=== PATIENT | female | born 1975 | race Caucasian/White ===

== ENCOUNTER 2018-04-15 00:18 | Emergency (ER) | payer SELFPAY | END 2018-04-15 00:48 | disposition left against medical advice (07) | LOC: ED 00:18 | DX: R06.2 Wheezing (principal); M79.1 Myalgia; Z53.21 Procedure and treatment not carried out due to patient leaving prior to being seen by health care provider ==

== ENCOUNTER 2019-02-26 02:13 | Emergency (ER) | payer OTHER ==
[2019-02-26] MEDS ORDERED: DUONEB *Not for PRN Use IH ONE ×3 (02:20→02:34)
[2019-02-26 02:33] VITALS: BP 158/98
[2019-02-26] MEDS ORDERED: DECADRON IV ONE (03:03)
[2019-02-26] MEDS ORDERED: IBUPROFEN PO ONE (03:03)
[2019-02-26] MEDS ORDERED: PROVENTIL IH ONE (03:04)
[2019-02-26] MEDS ORDERED: ATROVENT IH ONE (03:04)
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
--- NOTE | 2019-02-26 04:58 | XRay Report ---
PROCEDURE: XR CHEST ROUTINE 2V TECHNIQUE: PA and lateral chest radiographs were obtained. HISTORY: JORDYN COMPARISONS: None. FINDINGS: Frontal and lateral views the chest were acquired. The heart is normal in size. The lungs a ppear clear. The pleura and mediastinum are within normal limits IMPRESSION: No active disease in the chest This document is electronically signed by Thaddeus Partida MD., February 26 2019 04:56:05 AM ET
== END 2019-02-26 05:41 | disposition home or self-care (01) ==
LOC: ED 02:13
DX: J45.901 Unspecified asthma with (acute) exacerbation (principal); F17.200 Nicotine dependence, unspecified, uncomplicated; F12.10 Cannabis abuse, uncomplicated; F14.10 Cocaine abuse, uncomplicated; Z79.899 Other long term (current) drug therapy
CPT/HCPCS: 71046; 94644; 96374; 99284; J1100

== ENCOUNTER 2019-04-22 02:05 | Emergency (ER) | payer SELFPAY ==
[2019-04-22] MEDS ORDERED: DUONEB *Not for PRN Use IH ONE ×2 (02:13→02:27)
[2019-04-22 02:26] VITALS: BP 149/100
[2019-04-22] MEDS ORDERED: DECADRON IM ONE (02:59)
[2019-04-22] MEDS ORDERED: PROVENTIL IH ONE (03:12)
[2019-04-22] MEDS ORDERED: ATROVENT IH ONE (03:12)
--- NOTE | 2019-04-22 03:25 | XRay Report ---
CHEST 2 VIEWS INDICATION / CLINICAL INFORMATION: Cough and wheezing. COMPARISON: 02/26/2019. FINDINGS: SUPPORT DEVICES: None. HEART / MEDIASTINUM: The heart size and pulmonary vasculature are normal. LUNGS / PLEURA: Mild diffuse chronic interstitial disease is stable. No new abnormality is seen. No p neumothorax. ADDITIONAL FINDINGS: No significant additional findings. IMPRESSION: Mild diffuse chronic interstitial lung disease is stable. No acute abnormality or other c hange since 02/26/2019. Signer Name: Russel Resendiz MD Signed: 04/22/2019 3:20 AM Workstation Name: [email or web address]
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
== END 2019-04-22 05:36 | disposition home or self-care (01) ==
LOC: ED 02:05
DX: J45.21 Mild intermittent asthma with (acute) exacerbation (principal); F17.200 Nicotine dependence, unspecified, uncomplicated; Z98.890 Other specified postprocedural states; Z79.899 Other long term (current) drug therapy
CPT/HCPCS: 71046; 94644; 96372; 99283; J1100

== ENCOUNTER 2019-09-24 00:37 | Emergency (ER) | payer SELFPAY ==
[2019-09-24 00:46] VITALS: BP 168/107
== END 2019-09-24 02:40 | disposition left against medical advice (07) ==
LOC: ED 00:37
DX: L02.32 Furuncle of buttock (principal); Z53.21 Procedure and treatment not carried out due to patient leaving prior to being seen by health care provider

== ENCOUNTER 2020-03-19 05:51 | Observation (INO) | payer SELFPAY ==
[2020-03-19] MEDS ORDERED: MAGNESIUM SULFATE 2 GM/50 ML BAG IV ONE (06:11)
[2020-03-19] MEDS ORDERED: ALBUTEROL 2.5 MG/3 ML NEBU IH ONE ×2 (06:11→11:02)
[2020-03-19] MEDS ORDERED: dexAMETHasone 20 MG/5 ML VIAL IV ONE (06:11)
[2020-03-19] MEDS ORDERED: IPRATROPIUM 0.02% NEBU 2.5 ML IH ONE ×2 (06:11→11:02)
--- NOTE | 2020-03-19 06:14 | Emergency Department Report ---
Chief Complaint: Dyspnea/Respdistress Stated Complaint: ASTHMA/CHEST PAIN - HPI History of Present Illness: 44-year-old known asthmatic presents to the emergency room for shortness of breath productive cough chest tightness x2 days. Patient reports that she is ran out of her nebulizer solutions. Patient denies any fever or chills. - Exam Vital Signs: Vital Signs 03/19/20 05:54 Temperature 98.5 F Pulse Rate 111 H Respiratory 16 Rate Blood Pressure 166/108 O2 Sat by Pulse 95 Oximetry Physical Exam: Gen: alert oriented NAD HEENT: Bilateral eyes are red nasal turbinates hypertrophic oromucosa is moist Cardic: regular rate and rhythm no murmurs appreciated Resp: Inspiratory and expiratory wheezing with rhonchorous Abdomen: Soft nontender nondistended normal bowel sounds. MSE screening note: Focused history and physical exam performed. Due to findings the following was ordered: 44-year-old known asthmatic presents to the emergency room for shortness of breath productive cough chest tightness x2 days. Patient reports that she is ran out of her nebulizer solutions. Patient denies any fever or chills. IV normal saline, dexamethasone 10 mg IV, magnesium 2 g IV normal saline 1 L, albuterol 5 mg inhalation and Atrovent 0.5 mg inhalation. Patient be evaluated by the next provider on duty. ED Disposition for MSE Condition: Stable Referrals: PRIMARY CARE, [Primary Care Provider] - 3-5 Days
[2020-03-19] MEDS ORDERED: SODIUM CHLORIDE 0.9% 1000 ML 1,000 ML IV ONE (06:24)
[2020-03-19] MEDS ORDERED: SODIUM CHLORIDE 0.9% 1000 ML 1,000 ML ONE (06:25)
[2020-03-19] MEDS ORDERED: BENZONATATE 100 MG CAP PO ONE (07:43)
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
--- NOTE | 2020-03-19 08:02 | XRay Report ---
CHEST 2 VIEWS INDICATION: cough, shortness of breath. COMPARISON: 04/22/2019. FINDINGS: Support devices: None. Heart: Within normal limits. Lungs/Pleura: No acute air space or interstitial disease. No significant pleural effusion. IMPRESSION: No acute findings. Signer Name: Frederick Zamora MD Signed: 03/19/2020 7:58 AM Workstation Name: [email or web address]
[2020-03-19 11:06] LABS: Hematocrit 42.7 % (30.3-42.9); Hemoglobin 14.2 gm/dl (10.1-14.3); Mean Corpuscular HGB Conc 33 % (30-34); Mean Corpuscular Volume 100 fl (79-97); Platelet Count 277 K/mm3 (140-440); Red Blood Count 4.27 M/mm3 (3.65-5.03); Red Cell Distribution Width 14.5 % (13.2-15.2)
[2020-03-19 11:14] LABS: Alanine Aminotransferase 12 units/L (7-56); Albumin 3.7 g/dL (3.9-5); BUN/Creatinine Ratio 12; Blood Urea Nitrogen 11 mg/dL (7-17); Calcium 8.6 mg/dL (8.4-10.2); Hemolysis Index 7
[2020-03-19 11:18] LABS: Bilirubin,Direct < 0.2 mg/dL (0-0.2)
[2020-03-19 12:59] LABS: ABG Base Excess -3.1 mmol/L (-2.0-3.0); ABG HCO3 21.1 mmol/L (20.0-26.0); ABG Methemoglobin 0.5 % (0.0-1.5); ABG Oxygen Saturation 92.4 % (95.0-99.0); ABG PCO2 35.5 mm Hg; ABG PH 7.393 pH Units (7.350-7.450); ABG PO2 61.8 mm Hg (80.0-90.0)
[2020-03-19] MEDS ORDERED: ZIPRASIDONE MESYLATE 20 MG VIAL IM ONE (14:27)
--- NOTE | 2020-03-19 15:20 | Cat Scan Report ---
CTA CHEST WITH CONTRAST INDICATION : shortness of breath, hypoxia, +dimer,. TECHNIQUE: Axial imaging performed through the chest, with contrast bolus timing set to maximize opa cification of the pulmonary arteries. Sagittal and coronal reformatted images. 3-plane MIP reformatte d images were obtained. All CT scans at this location are performed using CT dose reduction for ALAR A by means of automated exposure control. 100 mL of intravenous contrast administered. COMPARISON: FINDINGS: Bolus: Contrast bolus timing is adequate. PTE: No filling defect is present to suggest PTE. Mediastinum: Heart and great vessels appear normal. No pathologic mediastinal adenopathy. Lungs: Lungs are clear. Bones: Degenerative changes in the spine with nothing acute. Upper abdomen: Limited imaging of the upper abdomen shows nothing acute. IMPRESSION: Negative for PTE. Clear lungs. Signer Name: Robert Ordonez Jr, MD Signed: 03/19/2020 3:16 PM Workstation Name: [id number]
[2020-03-19] MEDS ORDERED: cefTRIAXone/NS 1 GM/50 ML 1 GM/50 ML BAG IV ONE (15:58)
[2020-03-19 19:43] LABS: Basophils % (Manual) 0 % (0.0-1.8); Eosinophils % (Manual) 0 % (0.0-4.3); Hypochromasia Few; Platelet Estimate Consistent w Auto; Total Cells Counted 100
--- NOTE | 2020-03-19 20:36 | Event Note ---
Date: 03/19/20 Patient reevaluated Improved with treatments Oxygen saturation 98% on room air Slight wheezing and rhonchi present. Patient discharged on Levaquin steroid Dosepak Singulair and albuterol inhaler. Patient to follow-up with PCP.
[2020-03-20 07:57] VITALS: BP 122/62
== END 2020-03-19 23:59 | disposition home or self-care (01) ==
LOC: ED 05:51 → 3A 16:02
PROVIDERS: ADMIT Internal Medicine; ATTEND Internal Medicine
DX: J45.41 Moderate persistent asthma with (acute) exacerbation (principal); R09.02 Hypoxemia; F17.200 Nicotine dependence, unspecified, uncomplicated; Z90.81 Acquired absence of spleen; Z79.899 Other long term (current) drug therapy
CPT/HCPCS: 36415; 71046; 71275; 80048; 80076; 82803; 83880; 85007; 85025; 85379; 93005; 94644; 96365; 96367; 96375; 99291; G0378; J0696; J1100; J3475; J3486; J7030; Q9967

== ENCOUNTER 2020-07-04 13:09 | Emergency (ER) | payer SELFPAY ==
[2020-07-04] MEDS ORDERED: methylPREDNISolone Sod Succinate 125 MG/2 ML INJ IM ONE (14:36)
[2020-07-04] MEDS ORDERED: ALBUTEROL 2.5 MG/3 ML NEBU IH ONE (14:37)
[2020-07-04] MEDS ORDERED: IPRATROPIUM 0.02% NEBU 2.5 ML IH ONE (14:37)
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
--- NOTE | 2020-07-04 15:00 | XRay Report ---
CHEST 2 VIEWS INDICATION / CLINICAL INFORMATION: SOB wheezing. COMPARISON: 03/19/2020 FINDINGS: SUPPORT DEVICES: None. HEART / MEDIASTINUM: No significant abnormality. LUNGS / PLEURA: No significant pulmonary or pleural abnormality. No pneumothorax. ADDITIONAL FINDINGS: No significant additional findings. IMPRESSION: 1. No acute findings. No significant interval change. Signer Name: oJe Hall MD Signed: 07/04/2020 2:55 PM Workstation Name: [id number]
[2020-07-04] MEDS ORDERED: SODIUM CHLORIDE 0.9% 500 ML 500 ML IV ONE (15:49)
[2020-07-04] MEDS ORDERED: MAGNESIUM SULFATE 1 GM in SODIUM CHLORIDE 0.9% 50 ML IV ONE (16:00)
[2020-07-04 16:31] LABS: Alanine Aminotransferase 12 units/L (7-56); Albumin 3.7 g/dL (3.9-5); BUN/Creatinine Ratio 13; Blood Urea Nitrogen 10 mg/dL (7-17); Calcium 8.9 mg/dL (8.4-10.2); Hemolysis Index 6
[2020-07-04 16:44] LABS: Hematocrit 42.2 % (30.3-42.9); Hemoglobin 14.4 gm/dl (10.1-14.3); Mean Corpuscular HGB Conc 34 % (30-34); Mean Corpuscular Volume 99 fl (79-97); Platelet Count 293 K/mm3 (140-440); Red Blood Count 4.28 M/mm3 (3.65-5.03); Red Cell Distribution Width 13.6 % (13.2-15.2)
[2020-07-04 17:12] VITALS: BP 171/95
[2020-07-04 18:11] LABS: Anisocytosis Few; Hypochromasia Few; Total Cells Counted 100
== END 2020-07-04 18:13 | disposition home or self-care (01) ==
LOC: ED 13:09
DX: J02.9 Acute pharyngitis, unspecified (principal); J45.901 Unspecified asthma with (acute) exacerbation; F17.200 Nicotine dependence, unspecified, uncomplicated; Z98.890 Other specified postprocedural states; Z79.899 Other long term (current) drug therapy
CPT/HCPCS: 36415; 71046; 80053; 83735; 84484; 85007; 85025; 94644; 96365; 96372; 99285; J2930; J3475; J7040

== ENCOUNTER 2020-07-27 03:38 | Emergency (ER) | payer SELFPAY | END 2020-07-27 07:00 | disposition left against medical advice (07) | LOC: ED 03:38 | DX: M79.604 Pain in right leg (principal); Z53.21 Procedure and treatment not carried out due to patient leaving prior to being seen by health care provider ==

== ENCOUNTER 2020-07-27 16:55 | Emergency (ER) | payer SELFPAY ==
[2020-07-27] MEDS ORDERED: DEXTROSE 50% IN WATER (25GM) 50 ML SYRINGE IV ONE (17:02)
[2020-07-27] MEDS ORDERED: KETOROLAC 30 MG/1 ML INJ IM ONE (17:36)
--- NOTE | 2020-07-27 17:37 | Event Note ---
ED Screening Note Date of service: 07/27/20 Time: 17:34 ED Screening Note: 45-year-old -Faroese female presents to the emergency room complaining of right hip and leg pain that started 4 days ago. Patient reports she last took ibuprofen around 1 PM. Patient denies any injuries. This initial assessment/diagnostic orders/clinical plan/treatment(s) is/are subject to change based on patients health status, clinical progression and re- assessment by fellow clinical providers in the ED. Further treatment and workup at subsequent clinical providers discretion. Patient/guardian urged not to elope from the ED as their condition may be serious if not clinically assessed and managed. Initial orders include:
--- NOTE | 2020-07-27 18:42 | XRay Report ---
RIGHT HIP 2 VIEW(S) INDICATION / CLINICAL INFORMATION: Right hip pain COMPARISON: None available. FINDINGS: BONES / JOINT(S): No acute fracture. No hip dislocation. Remote internally fixated left intertrochant fabrice femur fracture noted with near bridging heterotopic ossification. There are remote fractures of the left pubis and left sacrum with pseudoarticulation of the sacrum and L4 transverse process. Trans itional features are seen at the lumbosacral junction. SOFT TISSUES: No significant abnormality. ADDITIONAL FINDINGS: None. IMPRESSION: No acute process of the right hip. Other incidental findings as above Signer Name: Albino Moura MD Signed: 07/27/2020 6:37 PM Workstation Name: [id number]
[2020-07-27] MEDS ORDERED: KETOROLAC 30 MG/1 ML INJ ONE (19:55)
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
[2020-07-27 21:07] VITALS: BP 127/92
== END 2020-07-27 20:57 | disposition home or self-care (01) ==
LOC: ED 16:55
DX: M25.551 Pain in right hip (principal); J45.909 Unspecified asthma, uncomplicated; F17.200 Nicotine dependence, unspecified, uncomplicated; Z98.890 Other specified postprocedural states
CPT/HCPCS: 73502; 96372; 99283; J1885

== ENCOUNTER 2021-02-27 17:44 | Emergency (ER) | payer MEDICAID ==
[2021-02-27 18:05] VITALS: BP 143/86
[2021-02-27] MEDS ORDERED: MAGNESIUM SULFATE 2 GM/50 ML BAG IV ONE (18:26)
[2021-02-27] MEDS ORDERED: methylPREDNISolone Sod Succinate 125 MG/2 ML INJ IV ONE (18:26)
[2021-02-27] MEDS ORDERED: ALBUTEROL 2.5 MG/3 ML NEBU IH ONE (18:28)
[2021-02-27] MEDS ORDERED: IPRATROPIUM/ALBUTEROL SULFATE 3 ML AMPUL.NEB IH ONE (18:29)
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
--- NOTE | 2021-02-27 19:32 | XRay Report ---
CHEST 2 VIEWS INDICATION: Dyspnea. COMPARISON: 07/04/2020 FINDINGS: SUPPORT DEVICES: None. HEART: Within normal limits. LUNGS/PLEURA: Minimal patchy bibasilar airspace disease with otherwise clear lungs. No dense consolid ation or pleural effusion. No pneumothorax. ADDITIONAL FINDINGS: None. IMPRESSION: 1. Pulmonary findings as above. Signer Name: Wil Samayoa MD Signed: 02/27/2021 7:27 PM Workstation Name: [id number]
[2021-02-27 19:51] LABS: Hematocrit 42.1 % (30.3-42.9); Hemoglobin 14.4 gm/dl (10.1-14.3); Mean Corpuscular HGB Conc 34 % (30-34); Mean Corpuscular Volume 101 fl (79-97); Platelet Count 175 K/mm3 (140-440); Red Blood Count 4.17 M/mm3 (3.65-5.03); Red Cell Distribution Width 14.1 % (13.2-15.2)
[2021-02-27 19:55] LABS: Alanine Aminotransferase 24 units/L (7-56); Albumin 3.4 g/dL (3.9-5); BUN/Creatinine Ratio 11; Blood Urea Nitrogen 10 mg/dL (7-17); Calcium 7.9 mg/dL (8.4-10.2); Hemolysis Index 8
[2021-02-27 20:41] LABS: Total Cells Counted 100
[2021-02-27 20:42] LABS: Platelet Estimate Consistent w Auto; RBC Morphology Normal; Smudge Cells Few
== END 2021-02-27 20:15 | disposition home or self-care (01) ==
LOC: ED 17:44
DX: J45.901 Unspecified asthma with (acute) exacerbation (principal); F17.200 Nicotine dependence, unspecified, uncomplicated; Z72.89 Other problems related to lifestyle; Z98.890 Other specified postprocedural states; Z79.899 Other long term (current) drug therapy
CPT/HCPCS: 36415; 71046; 80053; 82805; 85007; 85025; 94640; 96365; 96375; 99284; J2930; J3475

== ENCOUNTER 2021-03-05 06:01 | Inpatient (IN) | payer MEDICAID ==
[2021-03-05] MEDS ORDERED: IPRATROPIUM/ALBUTEROL SULFATE 3 ML AMPUL.NEB IH ONE (06:42)
[2021-03-05] MEDS ORDERED: ACETAMINOPHEN 500 MG TAB PO ONE (07:49)
[2021-03-05] MEDS ORDERED: IPRATROPIUM 0.02% NEBU 2.5 ML IH ONE (07:49)
[2021-03-05] MEDS ORDERED: methylPREDNISolone Sod Succinate 125 MG/2 ML INJ IV ONE (07:49)
[2021-03-05] MEDS ORDERED: ALBUTEROL 2.5 MG/3 ML NEBU IH ONE (07:49)
[2021-03-05] MEDS ORDERED: LACTATED RINGERS 1,000 ML IV ONE (07:49)
[2021-03-05] MEDS ORDERED: MAGNESIUM SULFATE 2 GM/50 ML BAG IV ONE (07:52)
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
--- NOTE | 2021-03-05 08:24 | XRay Report ---
CHEST 1 VIEW INDICATION: dyspnea. COMPARISON: 03/29/2021 FINDINGS: Support devices: None. Heart: Within normal limits. Lungs/Pleura: No acute air space or interstitial disease. Additional findings: None. IMPRESSION: No acute findings. Signer Name: Robert Ordonez Jr, MD Signed: 03/05/2021 8:19 AM Workstation Name: [id number]
[2021-03-05 08:34] LABS: Hematocrit 42.1 % (30.3-42.9); Mean Corpuscular HGB Conc 33 % (30-34); Mean Corpuscular Volume 99 fl (79-97); Platelet Count 363 K/mm3 (140-440); Red Blood Count 4.25 M/mm3 (3.65-5.03); Red Cell Distribution Width 13.7 % (13.2-15.2)
[2021-03-05 08:46] LABS: INR 0.92 (0.87-1.13)
[2021-03-05 08:59] LABS: Alanine Aminotransferase 20 units/L (7-56); Albumin 3.4 g/dL (3.9-5); Blood Urea Nitrogen 10 mg/dL (7-17); Calcium 8.7 mg/dL (8.4-10.2); Hemolysis Index 13
[2021-03-05 09:00] LABS: BUN/Creatinine Ratio 14
[2021-03-05] MEDS ORDERED: POTASSIUM CHLORIDE ER 20 MEQ TAB PO ONE ×2 (09:26→13:30)
--- NOTE | 2021-03-05 11:49 | History and Physical Report ---
History of Present Illness Chief complaint: I cannot breathe History of present illness: 45 YO Female with Asthma, Bronchitis presents to ED for evaluation. Patient reports "I cannot breathe". Patient has decreased verbalization due to shortness of breath and uses head gestures to acknowledge symptoms. Patient knowledges that she has experienced shortness of breath over the past week with worsening symptoms over the same timeframe. Patient was treated with outpatient steroid therapy, antibiotic therapy, and bronchodilator therapy without relief of symptoms. Patient knowledges increased use of bronchodilator therapy without relief. Patient transported to [facility] via private vehicle for further care and evaluation of the aforementioned symptoms. The patient was seen and evaluated in the emergency department. All lab and image studies reviewed. Patient is unable to speak and to complete sentences. Patient is using accessory muscles to breathe. Patient is tripoding and sitting forward in bed. Patient appears anxious and is unable to speak in complete sentences due to shortness of breath. Patient underwent chest x-ray and found to have evidence of pneumonia. Patient also found to have a pulse oximetry of 86% on room air as well as a PO2 of 44% on her arterial blood gas. Patient found to have symptoms consistent with acute hypoxemic respiratory failure secondary to pneumonia, and complicated by asthmatic bronchitis. Patient also found to have systemic inflammatory response syndrome. Patient admitted to medical floor due to increased risk of worsening symptoms. Patient initiated on pneumonia protocol and treated with IV antibiotic therapy. No reports of fever, chills, chest pain, palpitation, skin rash, recent ill contacts, or known exposure to COVID-19. Prior admission on 10/20/2019 reviewed. All medication listed in the medical record at time of admission has been reconciled. Past History Past Medical History: other (See HPI) Past Surgical History: total hip replacement, bowel surgery, Other (Spleenectomy. ) Social history: single. denies: smoking, alcohol abuse, prescription drug abuse Family history: no significant family history, other (Reviewed) Medications and Allergies Allergies Allergy/AdvReac Type Severity Reaction Status Date / Time No Known Allergies Allergy Verified 03/05/21 09:02 Home Medications Medication Instructions Recorded Confirmed Last Taken Type Prednisone [predniSONE 10 mg 10 mg PO .TAPER #1 tab.ds.pk 03/19/20 Unknown Rx (6-Day Pack, 21 Tabs)] levoFLOXacin [Levaquin] 750 mg PO QDAY 5 Days #5 tablet 03/19/20 Unknown Rx Ketorolac [Toradol] 10 mg PO Q6H PRN #15 tablet 07/27/20 Unknown Rx methOCARBAMOL [Robaxin] 750 mg PO Q8H PRN #21 tablet 07/27/20 Unknown Rx ALBUTEROL NEB's [Proventil 0.083% 2.5 mg IH QID PRN #30 neb 02/27/21 Unknown Rx NEBS] Albuterol Mdi (or & Nicu Only) 2 puff IH Q4H PRN #8.5 gram 02/27/21 Unknown Rx [ProAir HFA Inhaler] Benzonatate [Tessalon Perles] 100 mg PO Q8HR #30 capsule 02/27/21 Unknown Rx Montelukast [Singulair] 10 mg PO QPM 15 Days #15 tablet 02/27/21 Unknown Rx predniSONE [Deltasone] 60 mg PO QDAY #12 tab 02/27/21 Unknown Rx Review of Systems Constitutional: no weight loss, no weight gain, no fever, no chills Ears, nose, mouth and throat: no ear pain, no tinnitis, no nose pain, no nasal congestion Breasts: no change in shape, no swelling, no mass Cardiovascular: no chest pain, no orthopnea Respiratory: shortness of breath Gastrointestinal: no abdominal pain, no vomiting, no diarrhea, no change in bowel habits Genitourinary Female: no pelvic pain, no flank pain, no dysuria, no urinary frequency, no urgency Rectal: no pain, no bleeding Musculoskeletal: no neck stiffness, no neck pain, no low back pain, no shooting leg pain Integumentary: no rash, no pruritis, no redness, no sores, no wounds Neurological: no head injury, no paralysis, no parathesias, no tingling, no syncope Psychiatric: no anxiety, no change in sleep habits, no insomnia, no change in appetite, no change in libido Endocrine: no cold intolerance, no polyphagia, no polydipsia, no nocturia, no flushing Hematologic/Lymphatic: no easy bruising, no easy bleeding Allergic/Immunologic: no allergic rhinitis, no wheezing Exam - Constitutional Vitals: Temp Pulse Resp BP Pulse Ox 98.1 F 86 23 154/94 90 03/05/21 07:47 03/05/21 08:45 03/05/21 08:45 03/05/21 08:45 03/05/21 08:45 General appearance: Present: mild distress - EENT Eyes: Present: PERRL ENT: hearing intact, clear oral mucosa - Neck Neck: Present: supple, normal ROM - Respiratory Respiratory effort: labored, pursed lips, accessory muscle use, stridor Respiratory: bilateral: diminished, wheezing - Cardiovascular Heart Sounds: Present: S1 & S2. Absent: rub, click - Extremities Extremities: pulses symmetrical, No edema Peripheral Pulses: within normal limits - Abdominal General gastrointestinal: Present: soft, non-tender, non-distended, normal bowel sounds Female genitourinary: Present: normal - Integumentary Integumentary: Present: clear, warm, dry - Musculoskeletal Musculoskeletal: gait normal, strength equal bilaterally - Psychiatric Psychiatric: agitated - Neurologic Neurologic: CNII-XII intact, moves all extremities HEART Score - HEART Score Troponin: Troponin T < 0.010 ng/mL (0.00-0.029) 03/05/21 07:54 Results - Labs CBC & Chem 7: 03/05/21 07:54 03/05/21 12:10 Labs: Abnormal lab results 03/05/21 03/05/21 Range/Units 07:54 07:54 WBC 14.6 H (4.5-11.0) K/mm3 MCV 99 H (79-97) fl MCH 33 H (28-32) pg Potassium 3.2 L (3.6-5.0) mmol/L Albumin 3.4 L (3.9-5) g/dL Assessment and Plan - Patient Problems (1) Acute hypoxemic respiratory failure Current Visit: Yes Status: Acute Plan to address problem: Supplemental oxygen, pulse oximetry, nebulizer therapy, chest x-ray, arterial blood gas, noninvasive positive pressure ventilation as clinically indicated. (2) Pneumonia Current Visit: Yes Status: Acute Plan to address problem: Pneumonia protocol: Chest x-ray, CBC, CMP, IV antibiotic therapy, supplemental oxygen, pulse oximetry, noninvasive positive pressure ventilation as clinically indicated. Blood culture. (3) Systemic inflammatory response syndrome Current Visit: Yes Status: Acute Plan to address problem: CBC, CMP, chest x-ray, urinalysis, IV antibiotic therapy, supportive care. (4) Asthma exacerbation Current Visit: Yes Status: Acute Qualifiers: Asthma severity: mild Asthma persistence: intermittent Qualified Code(s): J45.21 - Mild intermittent asthma with (acute) exacerbation Plan to address problem: Chest x-ray, nebulizer therapy, pulse oximetry, steroid therapy, supportive care. Patient counseled regarding avoidance of asthma triggers. (5) Suspected 2019 novel coronavirus infection Current Visit: Yes Status: Acute Plan to address problem: Coronavirus PCR ordered by ED staff. And is pending at time of admission. (6) DVT prophylaxis Current Visit: Yes Status: Acute Plan to address problem: SCDs bilateral lower extremities while in bed, patient is ambulatory
[2021-03-05 11:59] LABS: ABG Base Excess 0.6 mmol/L (-2.0-3.0); ABG HCO3 24.6 mmol/L (20.0-26.0); ABG Methemoglobin 0.6 % (0.0-1.5); ABG Oxygen Saturation 80.8 % (95.0-99.0); ABG PCO2 37.6 mm Hg; ABG PH 7.434 pH Units (7.350-7.450); ABG PO2 44.7 mm Hg (80.0-90.0)
[2021-03-05] MEDS ORDERED: ONDANSETRON 4 MG/2 ML INJ IV PRN (12:21)
[2021-03-05] MEDS ORDERED: KETOROLAC 10 MG TAB PO PRN (12:25)
[2021-03-05 12:33] LABS: Total Cells Counted 100
[2021-03-05 12:37] LABS: Platelet Estimate Consistent w Auto; RBC Morphology Normal; Toxic Granulation Few
[2021-03-05 12:49] LABS: C-Reactive Protein 3.1 mg/dL (0.00-1.30)
[2021-03-05] MEDS ORDERED: ALBUTEROL 2.5 MG/3 ML NEBU IH PRN (13:00)
[2021-03-05] MEDS ORDERED: ACETAMINOPHEN 325 MG TAB PO PRN (13:00)
[2021-03-05] MEDS: methylPREDNISolone Sod Succinate 40 MG/1 ML INJ IV SCH ×2 (18:25→21:22)
[2021-03-05] MEDS: MONTELUKAST 10 MG TAB PO SCH (18:26)
[2021-03-05] MEDS: BENZONATATE 100 MG CAP PO SCH ×2 (18:26→21:23)
[2021-03-06] MEDS: methylPREDNISolone Sod Succinate 40 MG/1 ML INJ IV SCH ×3 (05:51→21:18)
[2021-03-06] MEDS: BENZONATATE 100 MG CAP PO SCH ×3 (05:52→21:18)
[2021-03-06 06:15] LABS: Blood Urea Nitrogen 15 mg/dL (7-17); Calcium 8.5 mg/dL (8.4-10.2); Hemolysis Index 5
[2021-03-06 06:18] LABS: BUN/Creatinine Ratio 21
[2021-03-06 06:21] LABS: Basophils # (Auto) 0.1 K/mm3 (0.0-0.1); Basophils % (Auto) 0.3 % (0.0-1.8); Hematocrit 37.7 % (30.3-42.9); Lymphocytes # (Auto) 1.4 K/mm3 (1.2-5.4); Lymphocytes % (Auto) 7.8 % (13.4-35.0); Mean Corpuscular HGB Conc 34 % (30-34); Mean Corpuscular Volume 99 fl (79-97); Monocytes # (Auto) 1.1 K/mm3 (0.0-0.8); Monocytes % (Auto) 5.8 % (0.0-7.3); Platelet Count 374 K/mm3 (140-440); Red Blood Count 3.82 M/mm3 (3.65-5.03); Red Cell Distribution Width 14.1 % (13.2-15.2)
--- NOTE | 2021-03-06 07:52 | Progress Note ---
Assessment and Plan Assessment and plan: -- Acute hypoxemic respiratory failure/PO2 44.7 on ABG Current Visit: Yes Status: Acute ABG; PO2 44.7, O2 sats 80.8 L on room air Supplemental oxygen, titrate O2 sats to more than 90% Hypoxia due to acute exacerbation of bronchial asthma As well as acute bronchitis with pneumonitis Treat underlying cause --Acute exacerbation of bronchial asthma ; Current Visit: Yes Status: Acute Oxygen, nebulizers, tapering dose of steroids, inhalation steroids Empiric antibiotics, home O2 evaluation at discharge, BiPAP as needed --Acute bronchitis with pneumonitis Current Visit: Yes Status: Acute Empiric antibiotics, bronchodilators, blood cultures, oxygen titrate O2 sats more than 90%, BiPAP as needed -- Systemic inflammatory response syndrome[SIRS] Current Visit: Yes Status: Acute Tachycardia, tachypnea and leukocytosis With underlying acute bronchitis and pneumonitis Continue empiric antibiotics, bronchodilator and steroids, follow cultures --PUI /high suspicion COVID-19 Current Visit: Yes Status: Acute Coronavirus PCR ordered by ED staff. Isolation precautions and is pending at time of admission. --Mild to moderate malnutrition Current Visit: Yes Status: Acute Hypoalbuminemia, albumin 3.4 Nutrition supplements and supportive care --Ongoing tobacco use; Current Visit: Yes Status: Acute. Smoking cessation counseling done, risks and consequences of chronic tobacco use Complications explained in detail, spent 17 minutes Advised nicotine patch as needed --DVT prophylaxis Current Visit: Yes Status: Acute Lovenox/SCD Closely monitor the patient and adjust the management as needed Plan of care reviewed with the patient and her nurse History Interval history: I have seen and examined the patient at the bedside this morning Patient's chart and medications reviewed Admitted with acute exacerbation of bronchial asthma Feels slightly better, Jaquez PCR test is negative Patient still has some shortness of breath and wheeze In mild distress, vital signs reviewed Hospitalist Physical - Constitutional Vitals: Temp Pulse Resp BP Pulse Ox 98.2 F 85 20 144/85 91 03/06/21 04:41 03/06/21 04:41 03/06/21 04:41 03/06/21 04:41 03/06/21 04:41 General appearance: Present: mild distress, well-nourished - EENT Eyes: Present: PERRL, EOM intact - Neck Neck: Present: supple, normal ROM - Respiratory Respiratory effort: normal Respiratory: bilateral: diminished, wheezing, negative: rales, rhonchi - Cardiovascular Rhythm: regular Heart Sounds: Present: S1 & S2 - Extremities Extremities: no ischemia, No edema - Abdominal General gastrointestinal: soft, non-tender, non-distended, normal bowel sounds - Integumentary Integumentary: Present: clear, warm - Psychiatric Psychiatric: appropriate mood/affect, cooperative - Neurologic Neurologic: CNII-XII intact, moves all extremities HEART Score - HEART Score Troponin: Troponin T < 0.010 ng/mL (0.00-0.029) 03/05/21 07:54 Results - Labs CBC & Chem 7: 03/07/21 07:31 03/07/21 07:31 Labs: Laboratory Last Values WBC 18.3 K/mm3 (4.5-11.0) H 03/06/21 05:19 RBC 3.82 M/mm3 (3.65-5.03) 03/06/21 05:19 Hgb 13.0 gm/dl (10.1-14.3) 03/06/21 05:19 Hct 37.7 % (30.3-42.9) 03/06/21 05:19 MCV 99 fl (79-97) H 03/06/21 05:19 MCH 34 pg (28-32) H 03/06/21 05:19 MCHC 34 % (30-34) 03/06/21 05:19 RDW 14.1 % (13.2-15.2) 03/06/21 05:19 Plt Count 374 K/mm3 (140-440) 03/06/21 05:19 Lymph % (Auto) 7.8 % (13.4-35.0) L 03/06/21 05:19 [place] % (Auto) 5.8 % (0.0-7.3) 03/06/21 05:19 Eos % (Auto) 0.0 % (0.0-4.3) 03/06/21 05:19 Baso % (Auto) 0.3 % (0.0-1.8) 03/06/21 05:19 Lymph # (Auto) 1.4 K/mm3 (1.2-5.4) 03/06/21 05:19 [place] # (Auto) 1.1 K/mm3 (0.0-0.8) H 03/06/21 05:19 Eos # (Auto) 0.0 K/mm3 (0.0-0.4) 03/06/21 05:19 Baso # (Auto) 0.1 K/mm3 (0.0-0.1) 03/06/21 05:19 Add Manual Diff Complete 03/05/21 07:54 Total Counted 100 03/05/21 07:54 Seg Neutrophils % 86.1 % (40.0-70.0) H 03/06/21 05:19 Seg Neuts % (Manual) 60.0 % (40.0-70.0) 03/05/21 07:54 Lymphocytes % (Manual) 25.0 % (13.4-35.0) 03/05/21 07:54 Reactive Lymphs % (Man) 1.0 % 03/05/21 07:54 Monocytes % (Manual) 14.0 % (0.0-7.3) H 03/05/21 07:54 Nucleated RBC % Not Reportable 03/05/21 07:54 Seg Neutrophils # 15.8 K/mm3 (1.8-7.7) H 03/06/21 05:19 Seg Neutrophils # Man 8.8 K/mm3 (1.8-7.7) H 03/05/21 07:54 Band Neutrophils # 0.0 K/mm3 03/05/21 07:54 Lymphocytes # (Manual) 3.7 K/mm3 (1.2-5.4) 03/05/21 07:54 Abs React Lymphs (Man) 0.1 K/mm3 03/05/21 07:54 Monocytes # (Manual) 2.0 K/mm3 (0.0-0.8) H 03/05/21 07:54 Eosinophils # (Manual) 0.0 K/mm3 (0.0-0.4) 03/05/21 07:54 Basophils # (Manual) 0.0 K/mm3 (0.0-0.1) 03/05/21 07:54 Metamyelocytes # 0.0 K/mm3 03/05/21 07:54 Myelocytes # 0.0 K/mm3 03/05/21 07:54 Promyelocytes # 0.0 K/mm3 03/05/21 07:54 Blast Cells # 0.0 K/mm3 03/05/21 07:54 WBC Morphology Not Reportable 03/05/21 07:54 Hypersegmented Neuts Not Reportable 03/05/21 07:54 Hyposegmented Neuts Not Reportable 03/05/21 07:54 Hypogranular Neuts Not Reportable 03/05/21 07:54 Smudge Cells Not Reportable 03/05/21 07:54 Toxic Granulation Few 03/05/21 07:54 Toxic Vacuolation Not Reportable 03/05/21 07:54 Dohle Bodies Not Reportable 03/05/21 07:54 Pelger-Huet Anomaly Not Reportable 03/05/21 07:54 Brigida Rods Not Reportable 03/05/21 07:54 Platelet Estimate Consistent w auto 03/05/21 07:54 Clumped Platelets Not Reportable 03/05/21 07:54 Plt Clumps, EDTA Not Reportable 03/05/21 07:54 Large Platelets Not Reportable 03/05/21 07:54 Giant Platelets Not Reportable 03/05/21 07:54 Platelet Satelliting Not Reportable 03/05/21 07:54 Plt Morphology Comment Not Reportable 03/05/21 07:54 RBC Morphology Normal 03/05/21 07:54 Dimorphic RBCs Not Reportable 03/05/21 07:54 Polychromasia Not Reportable 03/05/21 07:54 Hypochromasia Not Reportable 03/05/21 07:54 Poikilocytosis Not Reportable 03/05/21 07:54 Anisocytosis Not Reportable 03/05/21 07:54 Microcytosis Not Reportable 03/05/21 07:54 Macrocytosis Not Reportable 03/05/21 07:54 Spherocytes Not Reportable 03/05/21 07:54 Pappenheimer Bodies Not Reportable 03/05/21 07:54 Sickle Cells Not Reportable 03/05/21 07:54 Target Cells Not Reportable 03/05/21 07:54 Tear Drop Cells Not Reportable 03/05/21 07:54 Ovalocytes Not Reportable 03/05/21 07:54 Helmet Cells Not Reportable 03/05/21 07:54 [place] Bodies Not Reportable 03/05/21 07:54 [place] Rings Not Reportable 03/05/21 07:54 Jai Cells Not Reportable 03/05/21 07:54 Bite Cells Not Reportable 03/05/21 07:54 Crenated Cell Not Reportable 03/05/21 07:54 Elliptocytes Not Reportable 03/05/21 07:54 Acanthocytes (Spur) Not Reportable 03/05/21 07:54 Rouleaux Not Reportable 03/05/21 07:54 Hemoglobin C Crystals Not Reportable 03/05/21 07:54 Schistocytes Not Reportable 03/05/21 07:54 Malaria parasites Not Reportable 03/05/21 07:54 Bart Bodies Not Reportable 03/05/21 07:54 Hem Pathologist Commnt No 03/05/21 07:54 PT 12.9 Sec. (12.2-14.9) 03/05/21 08:25 INR 0.92 (0.87-1.13) 03/05/21 08:25 D-Dimer 418.21 ng/mlDDU (0-234) H 03/05/21 12:10 ABG pH 7.434 pH Units (7.350-7.450) 03/05/21 11:45 ABG pCO2 37.6 mm Hg 03/05/21 11:45 ABG pO2 44.7 mm Hg (80.0-90.0) L 03/05/21 11:45 ABG HCO3 24.6 mmol/L (20.0-26.0) 03/05/21 11:45 ABG O2 Saturation 80.8 % (95.0-99.0) L 03/05/21 11:45 ABG O2 Content 15.0 (0.0-44) 03/05/21 11:45 ABG Base Excess 0.6 mmol/L (-2.0-3.0) 03/05/21 11:45 ABG Hemoglobin 14.0 gm/dl (12.0-16.0) 03/05/21 11:45 ABG Carboxyhemoglobin 4.7 % (0.0-5.0) 03/05/21 11:45 ABG Methemoglobin 0.6 % (0.0-1.5) 03/05/21 11:45 Oxyhemoglobin 76.5 % (95.0-99.0) L 03/05/21 11:45 FiO2 21 % 03/05/21 11:45 Sodium 136 mmol/L (137-145) L 03/06/21 05:19 Potassium 4.1 mmol/L (3.6-5.0) D 03/06/21 05:19 Chloride 102.0 mmol/L (98-107) 03/06/21 05:19 Carbon Dioxide 26 mmol/L (22-30) 03/06/21 05:19 Anion Gap 12 mmol/L 03/06/21 05:19 BUN 15 mg/dL (7-17) 03/06/21 05:19 Creatinine 0.7 mg/dL (0.6-1.2) 03/06/21 05:19 Estimated GFR > 60 ml/min 03/06/21 05:19 BUN/Creatinine Ratio 21 % 03/06/21 05:19 Glucose 150 mg/dL (65-100) H 03/06/21 05:19 Calcium 8.5 mg/dL (8.4-10.2) 03/06/21 05:19 Magnesium 2.20 mg/dL (1.7-2.3) 03/05/21 07:54 Ferritin 112.0 ng/mL (10.0-200.0) 03/05/21 12:10 Total Bilirubin 0.20 mg/dL (0.1-1.2) 03/05/21 07:54 AST 21 units/L (5-40) 03/05/21 07:54 ALT 20 units/L (7-56) 03/05/21 07:54 Alkaline Phosphatase 74 units/L (35-129) 03/05/21 07:54 Lactate Dehydrogenase 189 units/L (91-180) H 03/05/21 12:10 Total Creatine Kinase 132 units/L (30-135) 03/05/21 07:54 Troponin T < 0.010 ng/mL (0.00-0.029) 03/05/21 07:54 C-Reactive Protein 3.10 mg/dL (0.00-1.30) H 03/05/21 12:10 Total Protein 7.0 g/dL (6.3-8.2) 03/05/21 07:54 Albumin 3.4 g/dL (3.9-5) L 03/05/21 07:54 Albumin/Globulin Ratio 0.9 % 03/05/21 07:54 Procalcitonin < 0.05 ng/mL (<0.15) 03/05/21 12:10 HCG, Quant < 2 mIU/mL (0-4) 03/05/21 07:54 Daniel/IV: Voiding Method Toilet Active Medications - Current Medications Current Medications: Generic Name Dose Route Start Last Admin Trade Name Freq PRN Reason Stop Dose Admin Acetaminophen 650 mg 03/05/21 13:00 Acetaminophen 325 Mg Tab PO Q4H PRN Pain MILD(1-3)/Fever >100.5/[place] Albuterol 2.5 mg 03/05/21 13:00 Albuterol 2.5 Mg/3 Ml Nebu IH Q4HRT PRN Shortness Of Breath Benzonatate 100 mg 03/05/21 14:00 03/06/21 05:52 Benzonatate 100 Mg Cap PO 100 mg Q8HR ANTONY Administration Levofloxacin/Dextrose 750 mg in 150 mls @ 100 mls/hr 03/05/21 13:00 03/05/21 12:30 Levaquin 750mg/150ml IV 100 mls/hr Q24H ANTONY Administration Protocol Ketorolac Tromethamine 10 mg 03/05/21 12:25 Ketorolac 10 Mg Tab PO 03/10/21 12:24 Q6H PRN PAIN Methocarbamol 750 mg 03/05/21 12:25 Methocarbamol 750 Mg Tab PO Q8H PRN Spasms Methylprednisolone Sodium Succinate 40 mg 03/05/21 14:00 03/06/21 05:51 Methylprednisolone Sod Succinate 40 Mg/1 Ml Inj IV 40 mg Q8HR ANTONY Administration Montelukast Sodium 10 mg 03/05/21 18:00 03/05/21 18:26 Montelukast 10 Mg Tab PO 10 mg QPM ANTONY Administration Ondansetron HCl 4 mg 03/05/21 12:21 Ondansetron 4 Mg/2 Ml Inj IV Q8H PRN Nausea And Vomiting Sodium Chloride 10 ml 03/05/21 22:00 03/05/21 21:22 Sodium Chloride 0.9% 10 Ml Flush Syringe IV 10 ml BID ANTONY Administration Sodium Chloride 10 ml 03/05/21 12:21 Sodium Chloride 0.9% 10 Ml Flush Syringe IV PRN PRN LINE FLUSH
--- NOTE | 2021-03-06 16:42 | Cat Scan Report ---
CTA CHEST WITH CONTRAST INDICATION / CLINICAL INFORMATION: Elevated D-dimers/SOB/rule out PE 100 ml omni 350 . TECHNIQUE: Axial CT images were obtained through the chest after injection of IV contrast. 3 plane PA P and/or 3D reconstructions were produced. All CT scans at this location are performed using CT dose reduction for ALARA by means of automated exposure control. COMPARISON: CTA of the chest from 03/19/2020 FINDINGS: PULMONARY ARTERIES: No central or segmental pulmonary embolus. THORACIC AORTA: No significant abnormality. HEART: No significant abnormality. ADENOPATHY: No significant adenopathy. LUNGS/PLEURA: Mild patchy airspace opacities are present within the right middle and right lower lobe . Left lower lobe volume loss. There is also mild bronchial wall thickening in the lung bases. Lungs are otherwise clear. No pleural effusion. No pneumothorax. ADDITIONAL FINDINGS: None. UPPER ABDOMEN: No acute findings SKELETAL STRUCTURES: No significant osseous abnormality. IMPRESSION: 1. No evidence of pulmonary embolus. 2. Mild bronchial wall thickening with patchy airspace opacities within the right lower lobe and righ t middle lobe, concerning for pneumonia. Signer Name: Albino Moura MD Signed: 03/06/2021 4:38 PM Workstation Name: [id number]
[2021-03-06] MEDS: MONTELUKAST 10 MG TAB PO SCH (17:39)
--- NOTE | 2021-03-06 17:54 | Electrocardiograph Report ---
[facility] Test Date: 2021-03-05 Test Time: 08:24:55 Pat Name: MARTHA MARTIN Department: Room: A373 Gender: F [employer]er: NURSE : 1975 Requested By: EMMANUEL PARK Order Number: [id number] Reading MD: Susan Rodas Measurements Intervals [place] Rate: 86 P: 60 UT: 142 QRS: -27 QRSD: 84 T: 58 QT: 387 QTc: 465 Interpretive Statements Sinus rhythm Probable left atrial enlargement Probable anteroseptal infarct, old No previous ECG available for comparison Electronically Signed On 03-06-2021 17:53:39 EDT by Susan Rodas
[2021-03-07] MEDS: BENZONATATE 100 MG CAP PO SCH ×2 (05:07→14:34)
[2021-03-07] MEDS: methylPREDNISolone Sod Succinate 40 MG/1 ML INJ IV SCH ×3 (05:07→21:56)
[2021-03-07 07:54] LABS: Hematocrit 39.4 % (30.3-42.9); Hemoglobin 13.2 gm/dl (10.1-14.3); Mean Corpuscular HGB Conc 34 % (30-34); Mean Corpuscular Volume 100 fl (79-97); Platelet Count 422 K/mm3 (140-440); Red Blood Count 3.95 M/mm3 (3.65-5.03); Red Cell Distribution Width 14.2 % (13.2-15.2)
[2021-03-07 08:19] LABS: Blood Urea Nitrogen 17 mg/dL (7-17); Calcium 9.4 mg/dL (8.4-10.2); Hemolysis Index 4
[2021-03-07 08:34] LABS: BUN/Creatinine Ratio 24
--- NOTE | 2021-03-07 08:48 | Progress Note ---
Assessment and Plan Assessment and plan: -- Acute hypoxemic respiratory failure/PO2 44.7 on ABG Current Visit: Yes Status: Acute ABG; PO2 44.7, O2 sats 80.8 L on room air Supplemental oxygen, titrate O2 sats to more than 90% Hypoxia due to acute exacerbation of bronchial asthma As well as acute bronchitis with pneumonitis Treat underlying cause --Acute exacerbation of bronchial asthma ; Current Visit: Yes Status: Acute Oxygen, nebulizers, tapering dose of steroids, inhalation steroids Empiric antibiotics, home O2 evaluation at discharge, BiPAP as needed --Acute bronchitis with pneumonitis/right-sided pneumonia on CTA Current Visit: Yes Status: Acute Empiric antibiotics, bronchodilators, blood cultures, oxygen titrate O2 sats more than 90%, BiPAP as needed CTA chest; no PE patchy airspace opacities within the right lower lobe and right middle lobe. Concerning for pneumonia. --Elevated D-dimers; CTA negative for PE -- Systemic inflammatory response syndrome[SIRS] Current Visit: Yes Status: Acute Tachycardia, tachypnea and leukocytosis With underlying acute bronchitis and pneumonitis Continue empiric antibiotics, bronchodilator and steroids, follow cultures --PUI /high suspicion COVID-19 Current Visit: Yes Status: Acute Coronavirus PCR ordered by ED staff. Isolation precautions and is pending at time of admission. --Mild to moderate malnutrition Current Visit: Yes Status: Acute Hypoalbuminemia, albumin 3.4 Nutrition supplements and supportive care --Ongoing tobacco use; Current Visit: Yes Status: Acute. Smoking cessation counseling done, risks and consequences of chronic tobacco use Complications explained in detail, spent 17 minutes Advised nicotine patch as needed --DVT prophylaxis Current Visit: Yes Status: Acute Lovenox/SCD Closely monitor the patient and adjust the management as needed Plan of care reviewed with the patient and her nurse 03/07/2021; patient has severe congestion and cough Worsening wheeze, continue nebulizers IV steroids IV antibiotics Give a dose of Lasix, antihistamine, and cough medicine If no improvement will consult pulmonary History Interval history: I have seen and examined the patient at the bedside Patient's chart and medications reviewed Patient continues to have bad shortness of breath and severe chest congestion Complains of cough and worsening wheeze Vital signs noted Hospitalist Physical - Constitutional Vitals: Temp Pulse Resp BP Pulse Ox 98.0 F 74 20 170/96 97 03/07/21 05:15 03/07/21 05:15 03/07/21 05:15 03/07/21 05:15 03/07/21 08:40 General appearance: Present: mild distress, well-nourished, other (Worsening wheeze) - EENT Eyes: Present: PERRL, EOM intact - Neck Neck: Present: supple, normal ROM - Respiratory Respiratory effort: labored Respiratory: bilateral: diminished, wheezing, negative: rales, rhonchi - Cardiovascular Rhythm: regular Heart Sounds: Present: S1 & S2 - Extremities Extremities: no ischemia, No edema - Abdominal General gastrointestinal: soft, non-tender, non-distended, normal bowel sounds - Integumentary Integumentary: Present: clear, warm - Psychiatric Psychiatric: appropriate mood/affect, cooperative - Neurologic Neurologic: CNII-XII intact, moves all extremities HEART Score - HEART Score Troponin: Troponin T < 0.010 ng/mL (0.00-0.029) 03/05/21 07:54 Results - Labs CBC & Chem 7: 03/07/21 07:31 03/07/21 07:31 Labs: Laboratory Last Values WBC 18.6 K/mm3 (4.5-11.0) H 03/07/21 07:31 RBC 3.95 M/mm3 (3.65-5.03) 03/07/21 07:31 Hgb 13.2 gm/dl (10.1-14.3) 03/07/21 07:31 Hct 39.4 % (30.3-42.9) 03/07/21 07:31 MCV 100 fl (79-97) H 03/07/21 07:31 MCH 34 pg (28-32) H 03/07/21 07:31 MCHC 34 % (30-34) 03/07/21 07:31 RDW 14.2 % (13.2-15.2) 03/07/21 07:31 Plt Count 422 K/mm3 (140-440) 03/07/21 07:31 Lymph % (Auto) 7.8 % (13.4-35.0) L 03/06/21 05:19 [place] % (Auto) 5.8 % (0.0-7.3) 03/06/21 05:19 Eos % (Auto) 0.0 % (0.0-4.3) 03/06/21 05:19 Baso % (Auto) 0.3 % (0.0-1.8) 03/06/21 05:19 Lymph # (Auto) 1.4 K/mm3 (1.2-5.4) 03/06/21 05:19 [place] # (Auto) 1.1 K/mm3 (0.0-0.8) H 03/06/21 05:19 Eos # (Auto) 0.0 K/mm3 (0.0-0.4) 03/06/21 05:19 Baso # (Auto) 0.1 K/mm3 (0.0-0.1) 03/06/21 05:19 Add Manual Diff Complete 03/05/21 07:54 Total Counted 100 03/05/21 07:54 Seg Neutrophils % Nut Former 03/07/21 07:31 Seg Neuts % (Manual) 60.0 % (40.0-70.0) 03/05/21 07:54 Lymphocytes % (Manual) 25.0 % (13.4-35.0) 03/05/21 07:54 Reactive Lymphs % (Man) 1.0 % 03/05/21 07:54 Monocytes % (Manual) 14.0 % (0.0-7.3) H 03/05/21 07:54 Nucleated RBC % Not Reportable 03/05/21 07:54 Seg Neutrophils # 15.8 K/mm3 (1.8-7.7) H 03/06/21 05:19 Seg Neutrophils # Man 8.8 K/mm3 (1.8-7.7) H 03/05/21 07:54 Band Neutrophils # 0.0 K/mm3 03/05/21 07:54 Lymphocytes # (Manual) 3.7 K/mm3 (1.2-5.4) 03/05/21 07:54 Abs React Lymphs (Man) 0.1 K/mm3 03/05/21 07:54 Monocytes # (Manual) 2.0 K/mm3 (0.0-0.8) H 03/05/21 07:54 Eosinophils # (Manual) 0.0 K/mm3 (0.0-0.4) 03/05/21 07:54 Basophils # (Manual) 0.0 K/mm3 (0.0-0.1) 03/05/21 07:54 Metamyelocytes # 0.0 K/mm3 03/05/21 07:54 Myelocytes # 0.0 K/mm3 03/05/21 07:54 Promyelocytes # 0.0 K/mm3 03/05/21 07:54 Blast Cells # 0.0 K/mm3 03/05/21 07:54 WBC Morphology Not Reportable 03/05/21 07:54 Hypersegmented Neuts Not Reportable 03/05/21 07:54 Hyposegmented Neuts Not Reportable 03/05/21 07:54 Hypogranular Neuts Not Reportable 03/05/21 07:54 Smudge Cells Not Reportable 03/05/21 07:54 Toxic Granulation Few 03/05/21 07:54 Toxic Vacuolation Not Reportable 03/05/21 07:54 Dohle Bodies Not Reportable 03/05/21 07:54 Pelger-Huet Anomaly Not Reportable 03/05/21 07:54 Brigida Rods Not Reportable 03/05/21 07:54 Platelet Estimate Consistent w auto 03/05/21 07:54 Clumped Platelets Not Reportable 03/05/21 07:54 Plt Clumps, EDTA Not Reportable 03/05/21 07:54 Large Platelets Not Reportable 03/05/21 07:54 Giant Platelets Not Reportable 03/05/21 07:54 Platelet Satelliting Not Reportable 03/05/21 07:54 Plt Morphology Comment Not Reportable 03/05/21 07:54 RBC Morphology Normal 03/05/21 07:54 Dimorphic RBCs Not Reportable 03/05/21 07:54 Polychromasia Not Reportable 03/05/21 07:54 Hypochromasia Not Reportable 03/05/21 07:54 Poikilocytosis Not Reportable 03/05/21 07:54 Anisocytosis Not Reportable 03/05/21 07:54 Microcytosis Not Reportable 03/05/21 07:54 Macrocytosis Not Reportable 03/05/21 07:54 Spherocytes Not Reportable 03/05/21 07:54 Pappenheimer Bodies Not Reportable 03/05/21 07:54 Sickle Cells Not Reportable 03/05/21 07:54 Target Cells Not Reportable 03/05/21 07:54 Tear Drop Cells Not Reportable 03/05/21 07:54 Ovalocytes Not Reportable 03/05/21 07:54 Helmet Cells Not Reportable 03/05/21 07:54 [place] Bodies Not Reportable 03/05/21 07:54 [place] Rings Not Reportable 03/05/21 07:54 [place] Cells Not Reportable 03/05/21 07:54 Bite Cells Not Reportable 03/05/21 07:54 Crenated Cell Not Reportable 03/05/21 07:54 Elliptocytes Not Reportable 03/05/21 07:54 Acanthocytes (Spur) Not Reportable 03/05/21 07:54 Rouleaux Not Reportable 03/05/21 07:54 Hemoglobin C Crystals Not Reportable 03/05/21 07:54 Schistocytes Not Reportable 03/05/21 07:54 Malaria parasites Not Reportable 03/05/21 07:54 Bart Bodies Not Reportable 03/05/21 07:54 Hem Pathologist Commnt No 03/05/21 07:54 PT 12.9 Sec. (12.2-14.9) 03/05/21 08:25 INR 0.92 (0.87-1.13) 03/05/21 08:25 D-Dimer 418.21 ng/mlDDU (0-234) H 03/05/21 12:10 ABG pH 7.434 pH Units (7.350-7.450) 03/05/21 11:45 ABG pCO2 37.6 mm Hg 03/05/21 11:45 ABG pO2 44.7 mm Hg (80.0-90.0) L 03/05/21 11:45 ABG HCO3 24.6 mmol/L (20.0-26.0) 03/05/21 11:45 ABG O2 Saturation 80.8 % (95.0-99.0) L 03/05/21 11:45 ABG O2 Content 15.0 (0.0-44) 03/05/21 11:45 ABG Base Excess 0.6 mmol/L (-2.0-3.0) 03/05/21 11:45 ABG Hemoglobin 14.0 gm/dl (12.0-16.0) 03/05/21 11:45 ABG Carboxyhemoglobin 4.7 % (0.0-5.0) 03/05/21 11:45 ABG Methemoglobin 0.6 % (0.0-1.5) 03/05/21 11:45 Oxyhemoglobin 76.5 % (95.0-99.0) L 03/05/21 11:45 FiO2 21 % 03/05/21 11:45 Sodium 138 mmol/L (137-145) 03/07/21 07:31 Potassium 4.9 mmol/L (3.6-5.0) 03/07/21 07:31 Chloride 104.7 mmol/L (98-107) 03/07/21 07:31 Carbon Dioxide 24 mmol/L (22-30) 03/07/21 07:31 Anion Gap 14 mmol/L 03/07/21 07:31 BUN 17 mg/dL (7-17) 03/07/21 07:31 Creatinine 0.7 mg/dL (0.6-1.2) 03/07/21 07:31 Estimated GFR > 60 ml/min 03/07/21 07:31 BUN/Creatinine Ratio 24 % 03/07/21 07:31 Glucose 159 mg/dL (65-100) H 03/07/21 07:31 Calcium 9.4 mg/dL (8.4-10.2) 03/07/21 07:31 Magnesium 2.20 mg/dL (1.7-2.3) 03/05/21 07:54 Ferritin 112.0 ng/mL (10.0-200.0) 03/05/21 12:10 Total Bilirubin 0.20 mg/dL (0.1-1.2) 03/05/21 07:54 AST 21 units/L (5-40) 03/05/21 07:54 ALT 20 units/L (7-56) 03/05/21 07:54 Alkaline Phosphatase 74 units/L (35-129) 03/05/21 07:54 Lactate Dehydrogenase 189 units/L (91-180) H 03/05/21 12:10 Total Creatine Kinase 132 units/L (30-135) 03/05/21 07:54 Troponin T < 0.010 ng/mL (0.00-0.029) 03/05/21 07:54 C-Reactive Protein 3.10 mg/dL (0.00-1.30) H 03/05/21 12:10 Total Protein 7.0 g/dL (6.3-8.2) 03/05/21 07:54 Albumin 3.4 g/dL (3.9-5) L 03/05/21 07:54 Albumin/Globulin Ratio 0.9 % 03/05/21 07:54 Procalcitonin < 0.05 ng/mL (<0.15) 03/05/21 12:10 HCG, Quant < 2 mIU/mL (0-4) 03/05/21 07:54 Coronavirus (PCR) Negative (Negative) 03/05/21 12:52 Daniel/IV: Voiding Method Toilet Active Medications - Current Medications Current Medications: Generic Name Dose Route Start Last Admin Trade Name Freq PRN Reason Stop Dose Admin Acetaminophen 650 mg 03/05/21 13:00 Acetaminophen 325 Mg Tab PO Q4H PRN Pain MILD(1-3)/Fever >100.5/[place] Albuterol 2.5 mg 03/05/21 13:00 03/07/21 08:45 Albuterol 2.5 Mg/3 Ml Nebu IH 2.5 mg Q4HRT PRN Administration Shortness Of Breath Benzonatate 100 mg 03/05/21 14:00 03/07/21 05:07 Benzonatate 100 Mg Cap PO 100 mg Q8HR ANTONY Administration Levofloxacin/Dextrose 750 mg in 150 mls @ 100 mls/hr 03/05/21 13:00 03/06/21 15:03 Levaquin 750mg/150ml IV 100 mls/hr Q24H ANTONY Administration Protocol Ketorolac Tromethamine 10 mg 03/05/21 12:25 Ketorolac 10 Mg Tab PO 03/10/21 12:24 Q6H PRN PAIN Methocarbamol 750 mg 03/05/21 12:25 Methocarbamol 750 Mg Tab PO Q8H PRN Spasms Methylprednisolone Sodium Succinate 40 mg 03/05/21 14:00 03/07/21 05:07 Methylprednisolone Sod Succinate 40 Mg/1 Ml Inj IV 40 mg Q8HR ANTONY Administration Montelukast Sodium 10 mg 03/05/21 18:00 03/06/21 17:39 Montelukast 10 Mg Tab PO 10 mg QPM ANTONY Administration Ondansetron HCl 4 mg 03/05/21 12:21 Ondansetron 4 Mg/2 Ml Inj IV Q8H PRN Nausea And Vomiting Sodium Chloride 10 ml 03/05/21 22:00 03/06/21 21:18 Sodium Chloride 0.9% 10 Ml Flush Syringe IV 10 ml BID ANTONY Administration Sodium Chloride 10 ml 03/05/21 12:21 Sodium Chloride 0.9% 10 Ml Flush Syringe IV PRN PRN LINE FLUSH
[2021-03-07 09:55] LABS: Promyelocytes # (Manual) 61.7 K/mm3; Total Cells Counted 100
[2021-03-07 09:59] LABS: Platelet Estimate Consistent w Auto; Target Cells 1+
[2021-03-07] MEDS: MONTELUKAST 10 MG TAB PO SCH (17:22)
[2021-03-07] MEDS ORDERED: FUROSEMIDE 40 MG/4 ML INJ IV ONE (20:00)
[2021-03-07] MEDS ORDERED: CETIRIZINE 10 MG TAB PO ONE (20:00)
[2021-03-07] MEDS: hydrALAZINE 20 MG/1 ML INJ IV PRN (22:38)
[2021-03-07] MEDS: guaiFENesin/CODEINE 100-10MG ORAL LIQD 5 ML PO PRN (23:18)
[2021-03-08] MEDS: methylPREDNISolone Sod Succinate 40 MG/1 ML INJ IV SCH ×3 (05:22→22:51)
[2021-03-08] MEDS: CETIRIZINE 10 MG TAB PO SCH (09:22)
[2021-03-08] MEDS: FUROSEMIDE 40 MG/4 ML INJ IV SCH (09:22)
[2021-03-08] MEDS: guaiFENesin/CODEINE 100-10MG ORAL LIQD 5 ML PO PRN (12:54)
[2021-03-08] MEDS: MONTELUKAST 10 MG TAB PO SCH (18:07)
--- NOTE | 2021-03-08 18:23 | Progress Note ---
Assessment and Plan Assessment and plan: --Acute exacerbation of bronchial asthma ; Current Visit: Yes Status: Acute Oxygen, nebulizers, tapering dose of steroids, inhalation steroids Empiric antibiotics, home O2 evaluation at discharge, BiPAP as needed - Acute hypoxemic respiratory failure/PO2 44.7 on ABG Current Visit: Yes Status: Acute ABG; PO2 44.7, O2 sats 80.8 L on room air Supplemental oxygen, titrate O2 sats to more than 90% Hypoxia due to acute exacerbation of bronchial asthma As well as acute bronchitis with pneumonitis Treat underlying cause --Acute bronchitis with pneumonitis/right-sided pneumonia on CTA Current Visit: Yes Status: Acute Empiric antibiotics, bronchodilators, blood cultures, oxygen titrate O2 sats more than 90%, BiPAP as needed CTA chest; no PE patchy airspace opacities within the right lower lobe and right middle lobe. Concerning for pneumonia. --Elevated D-dimers; CTA negative for PE -- Systemic inflammatory response syndrome[SIRS] Current Visit: Yes Status: Acute Tachycardia, tachypnea and leukocytosis With underlying acute bronchitis and pneumonitis Continue empiric antibiotics, bronchodilator and steroids, follow cultures --PUI /high suspicion COVID-19 Current Visit: Yes Status: Acute Coronavirus PCR ordered by ED staff. Isolation precautions and is pending at time of admission. --Mild to moderate malnutrition Current Visit: Yes Status: Acute Hypoalbuminemia, albumin 3.4 Nutrition supplements and supportive care --Ongoing tobacco use; Current Visit: Yes Status: Acute. Smoking cessation counseling done, risks and consequences of chronic tobacco use Complications explained in detail, spent 17 minutes Advised nicotine patch as needed --DVT prophylaxis. Current Visit: Yes Status: Acute Lovenox/SCD Closely monitor the patient and adjust the management as needed Plan of care reviewed with the patient and her nurse Brief history and daily hospital course 45-year-old female patient was admitted with acute hypoxic respiratory failure secondary to bronchial asthma exacerbation patient today feels much better, symptoms slightly improved,, Patient may be discharged tomorrow on tapering dose of steroids antibiotics and inhalers 03/07/2021; patient has severe congestion and cough Worsening wheeze, continue nebulizers IV steroids IV antibiotics Give a dose of Lasix, antihistamine, and cough medicine If no improvement will consult pulmonary 03/08/2021; DC patient home tomorrow if stable Home O2 evaluation prior to discharge History Interval history: I seen and examined the patient at the bedside Patient's chart and medications reviewed Admitted with acute respiratory failure bronchial asthma exacerbation With severe congestion cough and wheezing Feels slightly better today Denies any chest pain vital signs noted Hospitalist Physical - Constitutional Vitals: Temp Pulse Resp BP Pulse Ox 98.2 F 94 H 16 158/96 93 03/08/21 04:15 03/08/21 04:15 03/08/21 04:15 03/08/21 04:15 03/08/21 09:45 General appearance: Present: no acute distress, well-nourished, other (Worsening wheeze) - EENT Eyes: Present: PERRL, EOM intact - Neck Neck: Present: supple, normal ROM - Respiratory Respiratory effort: normal Respiratory: bilateral: diminished, wheezing, negative: rales, rhonchi - Cardiovascular Rhythm: regular Heart Sounds: Present: S1 & S2 - Extremities Extremities: no ischemia, No edema - Abdominal General gastrointestinal: soft, non-tender, non-distended, normal bowel sounds - Integumentary Integumentary: Present: clear, warm - Psychiatric Psychiatric: appropriate mood/affect, cooperative - Neurologic Neurologic: CNII-XII intact, moves all extremities HEART Score - HEART Score Troponin: Troponin T < 0.010 ng/mL (0.00-0.029) 03/05/21 07:54 Results - Labs CBC & Chem 7: 03/07/21 07:31 03/07/21 07:31 Labs: Laboratory Last Values WBC 18.6 K/mm3 (4.5-11.0) H 03/07/21 07:31 RBC 3.95 M/mm3 (3.65-5.03) 03/07/21 07:31 Hgb 13.2 gm/dl (10.1-14.3) 03/07/21 07:31 Hct 39.4 % (30.3-42.9) 03/07/21 07:31 MCV 100 fl (79-97) H 03/07/21 07:31 MCH 34 pg (28-32) H 03/07/21 07:31 MCHC 34 % (30-34) 03/07/21 07:31 RDW 14.2 % (13.2-15.2) 03/07/21 07:31 Plt Count 422 K/mm3 (140-440) 03/07/21 07:31 Lymph % (Auto) 7.8 % (13.4-35.0) L 03/06/21 05:19 Tucker % (Auto) 5.8 % (0.0-7.3) 03/06/21 05:19 Eos % (Auto) 0.0 % (0.0-4.3) 03/06/21 05:19 Baso % (Auto) 0.3 % (0.0-1.8) 03/06/21 05:19 Lymph # (Auto) 1.4 K/mm3 (1.2-5.4) 03/06/21 05:19 Tucker # (Auto) 1.1 K/mm3 (0.0-0.8) H 03/06/21 05:19 Eos # (Auto) 0.0 K/mm3 (0.0-0.4) 03/06/21 05:19 Baso # (Auto) 0.1 K/mm3 (0.0-0.1) 03/06/21 05:19 Add Manual Diff Complete 03/07/21 07:31 Total Counted 100 03/07/21 07:31 Seg Neutrophils % Electronic Security Technician 03/07/21 07:31 Seg Neuts % (Manual) 95.0 % (40.0-70.0) H 03/07/21 07:31 Lymphocytes % (Manual) 3.0 % (13.4-35.0) L 03/07/21 07:31 Reactive Lymphs % (Man) 1.0 % 03/05/21 07:54 Monocytes % (Manual) 2.0 % (0.0-7.3) 03/07/21 07:31 Nucleated RBC % Not Reportable 03/07/21 07:31 Seg Neutrophils # 15.8 K/mm3 (1.8-7.7) H 03/06/21 05:19 Seg Neutrophils # Man 17.7 K/mm3 (1.8-7.7) H 03/07/21 07:31 Band Neutrophils # 0.0 K/mm3 03/07/21 07:31 Lymphocytes # (Manual) 0.6 K/mm3 (1.2-5.4) L 03/07/21 07:31 Abs React Lymphs (Man) 0.0 K/mm3 03/07/21 07:31 Monocytes # (Manual) 0.4 K/mm3 (0.0-0.8) 03/07/21 07:31 Eosinophils # (Manual) 0.0 K/mm3 (0.0-0.4) 03/07/21 07:31 Basophils # (Manual) 0.0 K/mm3 (0.0-0.1) 03/07/21 07:31 Metamyelocytes # 0.0 K/mm3 03/07/21 07:31 Myelocytes # 0.0 K/mm3 03/07/21 07:31 Promyelocytes # 61.7 K/mm3 03/07/21 07:31 Blast Cells # 0.0 K/mm3 03/07/21 07:31 WBC Morphology Not Reportable 03/07/21 07:31 Hypersegmented Neuts Not Reportable 03/07/21 07:31 Hyposegmented Neuts Few 03/07/21 07:31 Hypogranular Neuts Not Reportable 03/07/21 07:31 Smudge Cells Not Reportable 03/07/21 07:31 Toxic Granulation Not Reportable 03/07/21 07:31 Toxic Vacuolation Not Reportable 03/07/21 07:31 Dohle Bodies Not Reportable 03/07/21 07:31 Pelger-Huet Anomaly Not Reportable 03/07/21 07:31 Brigida Rods Not Reportable 03/07/21 07:31 Platelet Estimate Consistent w auto 03/07/21 07:31 Clumped Platelets Not Reportable 03/07/21 07:31 Plt Clumps, EDTA Not Reportable 03/07/21 07:31 Large Platelets Not Reportable 03/07/21 07:31 Giant Platelets Not Reportable 03/07/21 07:31 Platelet Satelliting Not Reportable 03/07/21 07:31 Plt Morphology Comment Not Reportable 03/07/21 07:31 RBC Morphology Not Reportable 03/07/21 07:31 Dimorphic RBCs Not Reportable 03/07/21 07:31 Polychromasia Not Reportable 03/07/21 07:31 Hypochromasia Not Reportable 03/07/21 07:31 Poikilocytosis Not Reportable 03/07/21 07:31 Anisocytosis Not Reportable 03/07/21 07:31 Microcytosis Not Reportable 03/07/21 07:31 Macrocytosis Not Reportable 03/07/21 07:31 Spherocytes Not Reportable 03/07/21 07:31 Pappenheimer Bodies Not Reportable 03/07/21 07:31 Sickle Cells Not Reportable 03/07/21 07:31 Target Cells 1+ 03/07/21 07:31 Tear Drop Cells Not Reportable 03/07/21 07:31 Ovalocytes Not Reportable 03/07/21 07:31 Helmet Cells Not Reportable 03/07/21 07:31 [place] Bodies Not Reportable 03/07/21 07:31 [place] Rings Not Reportable 03/07/21 07:31 Jai Cells Not Reportable 03/07/21 07:31 Bite Cells Not Reportable 03/07/21 07:31 Crenated Cell Not Reportable 03/07/21 07:31 Elliptocytes Not Reportable 03/07/21 07:31 Acanthocytes (Spur) Not Reportable 03/07/21 07:31 Rouleaux Not Reportable 03/07/21 07:31 Hemoglobin C Crystals Not Reportable 03/07/21 07:31 Schistocytes Not Reportable 03/07/21 07:31 Malaria parasites Not Reportable 03/07/21 07:31 Bart Bodies Not Reportable 03/07/21 07:31 Hem Pathologist Commnt No 03/07/21 07:31 PT 12.9 Sec. (12.2-14.9) 03/05/21 08:25 INR 0.92 (0.87-1.13) 03/05/21 08:25 D-Dimer 418.21 ng/mlDDU (0-234) H 03/05/21 12:10 ABG pH 7.434 pH Units (7.350-7.450) 03/05/21 11:45 ABG pCO2 37.6 mm Hg 03/05/21 11:45 ABG pO2 44.7 mm Hg (80.0-90.0) L 03/05/21 11:45 ABG HCO3 24.6 mmol/L (20.0-26.0) 03/05/21 11:45 ABG O2 Saturation 80.8 % (95.0-99.0) L 03/05/21 11:45 ABG O2 Content 15.0 (0.0-44) 03/05/21 11:45 ABG Base Excess 0.6 mmol/L (-2.0-3.0) 03/05/21 11:45 ABG Hemoglobin 14.0 gm/dl (12.0-16.0) 03/05/21 11:45 ABG Carboxyhemoglobin 4.7 % (0.0-5.0) 03/05/21 11:45 ABG Methemoglobin 0.6 % (0.0-1.5) 03/05/21 11:45 Oxyhemoglobin 76.5 % (95.0-99.0) L 03/05/21 11:45 FiO2 21 % 03/05/21 11:45 Sodium 138 mmol/L (137-145) 03/07/21 07:31 Potassium 4.9 mmol/L (3.6-5.0) 03/07/21 07:31 Chloride 104.7 mmol/L (98-107) 03/07/21 07:31 Carbon Dioxide 24 mmol/L (22-30) 03/07/21 07:31 Anion Gap 14 mmol/L 03/07/21 07:31 BUN 17 mg/dL (7-17) 03/07/21 07:31 Creatinine 0.7 mg/dL (0.6-1.2) 03/07/21 07:31 Estimated GFR > 60 ml/min 03/07/21 07:31 BUN/Creatinine Ratio 24 % 03/07/21 07:31 Glucose 159 mg/dL (65-100) H 03/07/21 07:31 POC Glucose 143 mg/dL (70-105) H 03/07/21 11:35 Calcium 9.4 mg/dL (8.4-10.2) 03/07/21 07:31 Magnesium 2.20 mg/dL (1.7-2.3) 03/05/21 07:54 Ferritin 112.0 ng/mL (10.0-200.0) 03/05/21 12:10 Total Bilirubin 0.20 mg/dL (0.1-1.2) 03/05/21 07:54 AST 21 units/L (5-40) 03/05/21 07:54 ALT 20 units/L (7-56) 03/05/21 07:54 Alkaline Phosphatase 74 units/L (35-129) 03/05/21 07:54 Lactate Dehydrogenase 189 units/L (91-180) H 03/05/21 12:10 Total Creatine Kinase 132 units/L (30-135) 03/05/21 07:54 Troponin T < 0.010 ng/mL (0.00-0.029) 03/05/21 07:54 C-Reactive Protein 3.10 mg/dL (0.00-1.30) H 03/05/21 12:10 Total Protein 7.0 g/dL (6.3-8.2) 03/05/21 07:54 Albumin 3.4 g/dL (3.9-5) L 03/05/21 07:54 Albumin/Globulin Ratio 0.9 % 03/05/21 07:54 Procalcitonin < 0.05 ng/mL (<0.15) 03/05/21 12:10 HCG, Quant < 2 mIU/mL (0-4) 03/05/21 07:54 Coronavirus (PCR) Negative (Negative) 03/05/21 12:52 Daniel/IV: Voiding Method Toilet Active Medications - Current Medications Current Medications: Generic Name Dose Route Start Last Admin Trade Name Freq PRN Reason Stop Dose Admin Acetaminophen 650 mg 03/05/21 13:00 Acetaminophen 325 Mg Tab PO Q4H PRN Pain MILD(1-3)/Fever >100.5/[place] Albuterol 2.5 mg 03/05/21 13:00 03/07/21 08:45 Albuterol 2.5 Mg/3 Ml Nebu IH 2.5 mg Q4HRT PRN Administration Shortness Of Breath Cetirizine HCl 10 mg 03/08/21 10:00 03/08/21 09:22 Cetirizine 10 Mg Tab PO 10 mg QDAY ANTONY Administration Furosemide 40 mg 03/08/21 10:00 03/08/21 09:22 Furosemide 40 Mg/4 Ml Inj IV 40 mg QDAY ANTONY Administration Hydralazine HCl 10 mg 03/07/21 21:56 03/07/21 22:38 Hydralazine 20 Mg/1 Ml Inj IV 10 mg Q6H PRN Administration Blood Pressure Levofloxacin/Dextrose 750 mg in 150 mls @ 100 mls/hr 03/05/21 13:00 03/08/21 12:46 Levaquin 750mg/150ml IV 100 mls/hr Q24H ANTONY Administration Protocol Ketorolac Tromethamine 10 mg 03/05/21 12:25 Ketorolac 10 Mg Tab PO 03/10/21 12:24 Q6H PRN PAIN Methocarbamol 750 mg 03/05/21 12:25 Methocarbamol 750 Mg Tab PO Q8H PRN Spasms Methylprednisolone Sodium Succinate 40 mg 03/05/21 14:00 03/08/21 13:01 Methylprednisolone Sod Succinate 40 Mg/1 Ml Inj IV 40 mg Q8HR ANTONY Administration Montelukast Sodium 10 mg 03/05/21 18:00 03/08/21 18:07 Montelukast 10 Mg Tab PO 10 mg QPM ANTONY Administration Ondansetron HCl 4 mg 03/05/21 12:21 Ondansetron 4 Mg/2 Ml Inj IV Q8H PRN Nausea And Vomiting Pseudoephedrine/Acetam/Chlorphenir 5 ml 03/07/21 18:24 03/08/21 12:54 Guaifenesin/Codeine 100-10mg Oral Liqd 5 Ml PO 5 ml Q4H PRN Administration Cough Sodium Chloride 10 ml 03/05/21 22:00 03/08/21 09:23 Sodium Chloride 0.9% 10 Ml Flush Syringe IV 10 ml BID ANTONY Administration Sodium Chloride 10 ml 03/05/21 12:21 Sodium Chloride 0.9% 10 Ml Flush Syringe IV PRN PRN LINE FLUSH
[2021-03-08] MEDS: hydrALAZINE 20 MG/1 ML INJ IV PRN (18:24)
[2021-03-08] MEDS ORDERED: hydrALAZINE 20 MG/1 ML INJ IV PRN (18:30)
[2021-03-09] MEDS: methylPREDNISolone Sod Succinate 40 MG/1 ML INJ IV SCH ×2 (05:20→13:05)
[2021-03-09 05:53] LABS: Hematocrit 43.5 % (30.3-42.9); Hemoglobin 14.9 gm/dl (10.1-14.3); Mean Corpuscular HGB Conc 34 % (30-34); Mean Corpuscular Volume 100 fl (79-97); Platelet Count 465 K/mm3 (140-440); Red Blood Count 4.36 M/mm3 (3.65-5.03); Red Cell Distribution Width 14.1 % (13.2-15.2)
[2021-03-09] MEDS: FUROSEMIDE 40 MG/4 ML INJ IV SCH (09:24)
[2021-03-09] MEDS: CETIRIZINE 10 MG TAB PO SCH (09:24)
[2021-03-09 10:58] LABS: Total Cells Counted 100
[2021-03-09 10:59] LABS: Platelet Estimate Consistent w Auto; Target Cells Few
[2021-03-09 13:13] VITALS: BP 135/90
--- NOTE | 2021-03-09 13:59 | Discharge Summary ---
Providers - Providers Date of Admission: 03/05/21 12:21 Date of discharge: 03/09/21 Attending physician: LU MORALES Primary care physician: TROUBLE TRACER Hospitalization Condition: Serious Hospital course: Brief history and daily hospital course 45-year-old female patient was admitted with acute hypoxic respiratory failure secondary to bronchial asthma exacerbation patient today feels much better, symptoms slightly improved,, Patient may be discharged tomorrow on tapering dose of steroids antibiotics and inhalers 03/07/2021; patient has severe congestion and cough Worsening wheeze, continue nebulizers IV steroids IV antibiotics Give a dose of Lasix, antihistamine, and cough medicine If no improvement will consult pulmonary 03/08/2021; DC patient home tomorrow if stable Home O2 evaluation prior to discharge 03/09/2021 Patient improved and at baseline No wheezing Wants to go home Assessment and Plan --Acute exacerbation of bronchial asthma ; Current Visit: Yes Status: Acute Improved Patient was discharged on nebulizer machine and nebulizer treatments - Acute hypoxemic respiratory failure/PO2 44.7 on ABG Current Visit: Yes Status: Acute Improved --Acute bronchitis with pneumonitis/right-sided pneumonia on CTA Current Visit: Yes Status: Acute Patient improved Patient to be discharged on oral antibiotics and oral prednisone CTA chest; no PE patchy airspace opacities within the right lower lobe and right middle lobe. Concerning for pneumonia. --Elevated D-dimers; CTA negative for PE -- Systemic inflammatory response syndrome[SIRS] Current Visit: Yes Status: Acute Patient improved --PUI /high suspicion COVID-19 Current Visit: Yes Status: Acute Covid negative --Mild to moderate malnutrition Current Visit: Yes Status: Acute Hypoalbuminemia, albumin 3.4 Nutrition supplements and supportive care --Smoking cessation counseling Current Visit: Yes Status: Acute. Patient counseled about smoking cessation Time spent 10 minutes --DVT prophylaxis. Current Visit: Yes Status: Acute Lovenox/SCD Closely monitor the patient and adjust the management as needed Plan of care reviewed with the patient and her nurse Disposition: DC-01 TO HOME OR SELFCARE Final Discharge Diagnosis (Prints w/discharge instructions): Acute respiratory failure with hypoxia. Asthma exacerbation. Acute bronchitis. Sirs. Hypertension Time spent for discharge: 35 minutes - Discharge Diagnoses (1) Acute hypoxemic respiratory failure Status: Acute (2) Asthma exacerbation Status: Acute Qualifiers: Asthma severity: mild Asthma persistence: intermittent Qualified Code(s): J45.21 - Mild intermittent asthma with (acute) exacerbation (3) Systemic inflammatory response syndrome Status: Acute (4) Asthmatic bronchitis with acute exacerbation Status: Acute (5) Suspected 2019 novel coronavirus infection Status: Acute (6) DVT prophylaxis Status: Acute Core Measure Documentation - Palliative Care Palliative Care/ Comfort Measures: Not Applicable - Core Measures Any of the following diagnoses?: none Exam - Constitutional Vitals: Temp Pulse Resp BP Pulse Ox 98.1 F 81 18 135/90 96 03/09/21 11:25 03/09/21 11:25 03/09/21 11:25 03/09/21 11:25 03/09/21 11:25 General appearance: Present: no acute distress, well-nourished - EENT Eyes: Present: PERRL ENT: hearing intact, clear oral mucosa - Neck Neck: Present: supple, normal ROM - Respiratory Respiratory effort: normal Respiratory: bilateral: CTA - Cardiovascular Heart rate: 78 Rhythm: regular Heart Sounds: Present: S1 & S2. Absent: rub, click - Extremities Extremities: no ischemia, pulses symmetrical, No edema Peripheral Pulses: within normal limits - Abdominal General gastrointestinal: Present: soft, non-tender, non-distended, normal bowel sounds Female genitourinary: Present: normal - Rectal Rectal Exam: deferred - Integumentary Integumentary: Present: clear, warm, dry - Musculoskeletal Musculoskeletal: gait normal, strength equal bilaterally - Psychiatric Psychiatric: appropriate mood/affect, intact judgment & insight - Neurologic Neurologic: CNII-XII intact, moves all extremities - Allied Health Allied health notes reviewed: nursing, case management Plan Activity: no restrictions Diet: low salt Follow up with: JERALD JUSTICE MD [Primary Care Provider] - 3-5 Days SONG BAILON MD [Staff Physician] - 7 Days Prescriptions: Losartan [Cozaar] 50 mg PO QDAY #30 tablet levoFLOXacin [Levaquin TAB] 750 mg PO QDAY 5 Days #5 tablet Prednisone [predniSONE 10 mg (6-Day Pack, 21 Tabs)] 10 mg PO .TAPER #1 tab.ds.pk ALBUTEROL NEB's [Proventil 0.083% NEBS] 2.5 mg IH QID PRN #50 neb PRN Reason: Wheezing methOCARBAMOL [Robaxin TAB] 750 mg PO Q8H PRN #30 tablet PRN Reason: Spasms guaiFENesin/CODEINE [Robitussin AC] 5 ml PO Q4H PRN #8 oz PRN Reason: Cough Montelukast [Singulair] 10 mg PO QPM #30 tablet Other Discharge Orders: Nebulizer (Amb) Location: None Selected
== END 2021-03-09 15:00 | disposition home or self-care (01) | DRG 189 ==
LOC: ED 06:01 → 3A 12:21
PROVIDERS: ADMIT Internal Medicine; ATTEND Internal Medicine
DX: J96.01 Acute respiratory failure with hypoxia (principal); J18.9 Pneumonia, unspecified organism; Z20.822 Contact with and (suspected) exposure to COVID-19; R65.10 Systemic inflammatory response syndrome (SIRS) of non-infectious origin without acute organ dysfunction; E44.0 Moderate protein-calorie malnutrition; J20.9 Acute bronchitis, unspecified; F17.200 Nicotine dependence, unspecified, uncomplicated; E88.09 Other disorders of plasma-protein metabolism, not elsewhere classified; J45.21 Mild intermittent asthma with (acute) exacerbation; Z68.27 Body mass index [BMI] 27.0-27.9, adult; Z71.6 Tobacco abuse counseling; Z90.81 Acquired absence of spleen; Z79.899 Other long term (current) drug therapy
CPT/HCPCS: 36415; 71045; 71275; 80048; 80053; 82550; 82728; 82803; 82947; 82962; 83615; 83735; 84145; 84484; 84702; 85007; 85025; 85379; 85610; 86140; 93005; 94640; 94644; 96374; G0378; J0360; J1940; J1956; J2920; J2930; J3475; J7120; Q9967; U0003